=== PATIENT | female | born 1985 | race Two or more races ===

== ENCOUNTER 2022-07-03 01:23 | Emergency (ER) | payer OTHER ==
[2022-07-03 01:41] VITALS: BP 125/87; PULSE 99; RESP 20; TEMP 98; BMI 23.9
[2022-07-03] MEDS ORDERED: SODIUM CHLORIDE 0.9% 500 ML INFUS.BAG IV ONE ×2 (02:41→04:55)
[2022-07-03 04:19] LABS: PH,URINE 5.5 (5.0-8.0); URINE APPEARANCE CLEAR; URINE BILIRUBIN NEGATIVE (NEGATIVE); URINE COLOR YELLOW; URINE GLUCOSE (UA) NEGATIVE (NEGATIVE); URINE KETONE TRACE (NEGATIVE); URINE LEUK ESTERASE NEGATIVE (NEGATIVE); URINE NITRITE NEGATIVE (NEGATIVE); URINE PROTEIN NEGATIVE (NEGATIVE); URINE UROBILINOGEN 0.2 mg/dL (0.2-1.0)
[2022-07-03 04:40] LABS: BASO % 0.6 % (0-2.0); EOS % 1.2 % (0-4.5); HEMATOCRIT 35.7 % (32.4-45.2); HEMOGLOBIN 11.5 GM/dL (10.7-15.3); LYMPH % 14.5 % (8-40); MCH 27.4 pg (25.7-33.7); MCHC 32.3 g/dl (32.0-36.0); MEAN CELL VOLUME 84.7 fl (80-96); MEAN PLT VOLUME 9.2 fl (7.5-11.1); MONO % 9.4 % (3.8-10.2); NEUT % 74.3 % (42.8-82.8); PLATELET COUNT 205 10^3/uL (134-434); RBC 4.22 M/mm3 (3.60-5.2); RDW 14.3 % (11.6-15.6); WHITE BLOOD COUNT 7.5 K/mm3 (4.0-10.0)
[2022-07-03 04:41] LABS: HCG,QUALITATIVE URINE Negative
[2022-07-03 04:59] LABS: CALCIUM 8.7 mg/dL (8.5-10.1)
[2022-07-03 05:00] LABS: ALBUMIN 3.1 g/dl (3.4-5.0); BLOOD UREA NITROGEN 15.8 mg/dL (7-18)
[2022-07-03 05:03] LABS: CREATININE 0.6 mg/dL (0.55-1.3)
[2022-07-03 05:04] LABS: BILIRUBIN,TOTAL 0.2 mg/dL (0.2-1)
[2022-07-03 05:05] LABS: TOT PROT 6.4 g/dl (6.4-8.2)
[2022-07-03] MEDS ORDERED: AZITHROMYCIN 500 MG TABLET PO ONE (06:48)
[2022-07-03] MEDS ORDERED: AZITHROMYCIN 250 MG TABLET ONE (06:48)
== END 2022-07-03 07:02 | disposition home or self-care (01) ==
LOC: JER 01:23
DX: R55 Syncope and collapse (principal)
CPT/HCPCS: 0241U-QW; 36415; 70450-TC; 70486-TC; 71045-TC-FY; 80053; 81003; 84703; 85025; 87086; 93005; 93010; 99285-25